=== PATIENT | female | born 1960 | race Caucasian/White ===

== ENCOUNTER → 2016-12-08 | Outpatient (CLI) | payer BC ==
[2014-07-17 10:06] VITALS: BP 123/64
[2016-12-08 09:35] LABS: BASOPHILS # (AUTO) 0.2 X10^3/uL (0.0-0.1); BASOPHILS % (AUTO) 1.3 % (0.2-1.0); EOSINOPHILS # (AUTO) 0.2 x10^3/uL (0.0-0.2); EOSINOPHILS % (AUTO) 1.7 % (0.9-2.9); HEMATOCRIT 40.2 % (36.0-47.0); HEMOGLOBIN 13.3 g/dL (12.0-16.0); LYMPHOCYTES # (AUTO) 2.6 X10^3/uL (1.3-2.9); LYMPHOCYTES % (AUTO) 22.5 % (21.0-51.0); MEAN CORPUSCULAR HEMOGLOBIN 27.8 pg (27.0-34.0); MEAN CORPUSCULAR HGB CONC 33.2 g/dL (33.0-35.0); MEAN CORPUSCULAR VOLUME 83.9 fL (80.0-100.0); MEAN PLATELET VOLUME 6.9 fL (7.4-11.0); MONOCYTES # (AUTO) 0.6 x10^3/uL (0.3-0.8); MONOCYTES % (AUTO) 5.5 % (0.0-13.0); PLATELET COUNT 399 X10^3/uL (150.0-450.0); RED CELL DISTRIBUTION WIDTH 14.8 % (11.6-16.5); WHITE BLOOD COUNT 11.5 X10^3/uL (3.6-10.0)
[2016-12-08 10:07] LABS: ALANINE AMINOTRANSFERASE 28 Units/L (12-78); ALBUMIN 3.7 g/dL (3.4-5.0); ALKALINE PHOSPHATASE 105 Units/L (46-116); ASPARTATE AMINO TRANSFERASE 28 Units/L (15-37); BLOOD UREA NITROGEN 11 mg/dL (7-18); CALCIUM 8.8 mg/dL (8.5-10.1); CARBON DIOXIDE 33.1 mmol/L (21-32); CHLORIDE 101 mmol/L (98-107); CREATININE 0.92 mg/dL (0.55-1.02); GLUCOSE 97 mg/dL (65-99); SODIUM 140 mmol/L (136-145); TOTAL PROTEIN 8.2 g/dL (6.4-8.2); eGFR BLACK RACES > 60 (>60); eGFR NON BLACK RACES > 60 (>60)
== END ==
LOC: RAD 09:07
PROVIDERS: ATTEND Plastic Surgery
DX: Z12.31 Encounter for screening mammogram for malignant neoplasm of breast (principal); N62 Hypertrophy of breast
CPT/HCPCS: 36415; 77067; 80053; 85025; 86701

== ENCOUNTER 2019-10-31 17:11 | Observation (INO) ==
[2019-10-31 21:04] LABS: BASOPHILS # (AUTO) 0.1 X10^3/uL (0.0-0.1); BASOPHILS % (AUTO) 0.9 % (0.2-1.0); EOSINOPHILS # (AUTO) 0.2 x10^3/uL (0.0-0.2); EOSINOPHILS % (AUTO) 2.3 % (0.9-2.9); HEMATOCRIT 26.7 % (36.0-47.0); HEMOGLOBIN 8.3 g/dL (12.0-16.0); LYMPHOCYTES # (AUTO) 2.5 X10^3/uL (1.3-2.9); LYMPHOCYTES % (AUTO) 24.8 % (21.0-51.0); MEAN CORPUSCULAR HEMOGLOBIN 20.4 pg (27.0-34.0); MEAN CORPUSCULAR VOLUME 65.9 fL (80.0-100.0); MEAN PLATELET VOLUME 6.2 fL (7.4-11.0); MONOCYTES # (AUTO) 0.7 x10^3/uL (0.3-0.8); MONOCYTES % (AUTO) 7.2 % (0.0-13.0); NEUTROPHILS # (AUTO) 6.7 x10^3/uL (2.2-4.8); NEUTROPHILS % (AUTO) 64.8 % (42.0-75.0); PLATELET COUNT 441 X10^3/uL (150.0-450.0); RED BLOOD COUNT 4.05 X10^6/uL (3.5-5.4); WHITE BLOOD COUNT 10.3 X10^3/uL (3.6-10.0)
[2019-10-31 21:12] LABS: PLATELET MORPHOLOGY COMMENT NORMAL (NORMAL)
[2019-10-31 21:14] LABS: ANISOCYTOSIS 1+; HYPOCHROMASIA 2+; MICROCYTOSIS 1+
[2019-10-31 21:24] LABS: ALANINE AMINOTRANSFERASE 24 Units/L (12-78); ALBUMIN 3.6 g/dL (3.4-5.0); ALKALINE PHOSPHATASE 102 Units/L (46-116); ASPARTATE AMINO TRANSFERASE 19 Units/L (15-37); BLOOD UREA NITROGEN 14 mg/dL (7-18); CALCIUM 9.1 mg/dL (8.5-10.1); CARBON DIOXIDE 30.4 mmol/L (21-32); CHLORIDE 104 mmol/L (98-107); CKMB % 2.1 % (<4); CREATINE KINASE 161 Units/L (26-192); CREATINE KINASE MB 3.4 ng/mL (0-4.0); CREATININE 1.04 mg/dL (0.55-1.02); SODIUM 141 mmol/L (136-145); TOTAL PROTEIN 7.7 g/dL (6.4-8.2); TROPONIN I < 0.02 ng/mL (0-1.5); eGFR NON BLACK RACES 57 (>60)
[2019-10-31 21:51] LABS: IRON 214 ug/dL (50-175)
[2019-10-31 22:09] VITALS: BMI 34.3
[2019-10-31] MEDS: NS 1000 ML 1,000 ML IV SCH (22:51)
[2019-11-01 01:34] LABS: BILIRUBIN,URINE NEGATIVE (NEGATIVE); BLOOD/HEMOGLOBIN,URINE NEGATIVE (NEGATIVE); GLUCOSE, URINE NEGATIVE (NEGATIVE); KETONES,URINE NEGATIVE (NEGATIVE); LEUKOCYTE ESTERASE ,URINE NEGATIVE (NEGATIVE); NITRITES,URINE NEGATIVE (NEGATIVE); PROTEIN,URINE NEGATIVE (NEGATIVE); UROBILINOGEN,URINE NORMAL (NORMAL)
[2019-11-01 01:43] LABS: COLOR,URINE YELLOW (YELLOW)
[2019-11-01 01:44] LABS: APPEARANCE,URINE CLEAR (CLEAR)
[2019-11-01 02:51] LABS: BASOPHILS # (AUTO) 0.1 X10^3/uL (0.0-0.1); BASOPHILS % (AUTO) 0.9 % (0.2-1.0); EOSINOPHILS # (AUTO) 0.3 x10^3/uL (0.0-0.2); EOSINOPHILS % (AUTO) 3.3 % (0.9-2.9); HEMATOCRIT 25.6 % (36.0-47.0); HEMOGLOBIN 7.9 g/dL (12.0-16.0); LYMPHOCYTES # (AUTO) 2.6 X10^3/uL (1.3-2.9); LYMPHOCYTES % (AUTO) 31.4 % (21.0-51.0); MEAN CORPUSCULAR HEMOGLOBIN 20.4 pg (27.0-34.0); MEAN CORPUSCULAR HGB CONC 30.7 g/dL (33.0-35.0); MEAN CORPUSCULAR VOLUME 66.2 fL (80.0-100.0); MEAN PLATELET VOLUME 6.3 fL (7.4-11.0); MONOCYTES # (AUTO) 0.5 x10^3/uL (0.3-0.8); MONOCYTES % (AUTO) 5.9 % (0.0-13.0); NEUTROPHILS # (AUTO) 4.8 x10^3/uL (2.2-4.8); NEUTROPHILS % (AUTO) 58.5 % (42.0-75.0); PLATELET COUNT 417 X10^3/uL (150.0-450.0); RED BLOOD COUNT 3.87 X10^6/uL (3.5-5.4); RED CELL DISTRIBUTION WIDTH 19.8 % (11.6-16.5); WHITE BLOOD COUNT 8.2 X10^3/uL (3.6-10.0)
[2019-11-01 03:05] LABS: ALANINE AMINOTRANSFERASE 21 Units/L (12-78); ALBUMIN 3.1 g/dL (3.4-5.0); ALKALINE PHOSPHATASE 85 Units/L (46-116); ASPARTATE AMINO TRANSFERASE 19 Units/L (15-37); BLOOD UREA NITROGEN 12 mg/dL (7-18); CALCIUM 8.6 mg/dL (8.5-10.1); CHLORIDE 107 mmol/L (98-107); COR CA(FOR HYPOALB) 9.3 mg/dL (8.5-10.1); CREATININE 0.93 mg/dL (0.55-1.02); SODIUM 143 mmol/L (136-145); TOTAL PROTEIN 6.9 g/dL (6.4-8.2); eGFR NON BLACK RACES > 60 (>60)
[2019-11-01 03:14] LABS: CREATINE KINASE 138 Units/L (26-192); CREATINE KINASE MB 2.7 ng/mL (0-4.0); TROPONIN I < 0.02 ng/mL (0-1.5)
[2019-11-01 04:57] LABS: HYPOCHROMASIA 2+; MICROCYTOSIS 1+; PLATELET MORPHOLOGY COMMENT NORMAL (NORMAL)
--- NOTE | 2019-11-01 05:28 | RAD ---
Chest AP portableIndication: Weakness and anemiaFINDINGSThere is no pneumothorax, effusion or consolidation. Heart size is normal.IMPRESSIONNo acute chest processElectronically signed by: CELIO LAGUERRE (Nov 01, 2019 05:26:50)
[2019-11-01] MEDS ORDERED: MICRO K EXTEN CAP 10 MEQ PO PRN (06:15)
[2019-11-01] MEDS ORDERED: MAGNESIUM SULFATE 1 GRAM/100 mL PREMIX 1 GM/100 ML BAG IV PRN (06:15)
[2019-11-01] MEDS ORDERED: K-DUR TAB 20 MEQ PO PRN (06:15)
[2019-11-01] MEDS ORDERED: K-RIDER 10 MEQ/NS 100 ML 10 MEQ/100 ML BAG IV PRN (06:15)
[2019-11-01] MEDS ORDERED: POTASSIUM CHL 40 MEQ/NS 0.45% 500 ML IV PRN (06:15)
[2019-11-01] MEDS ORDERED: KLOR-CON PO PRN (06:15)
[2019-11-01] MEDS ORDERED: POTASSIUM CHLORIDE LIQ 20 MEQ UDC PO PRN (06:15)
[2019-11-01] MEDS ORDERED: POTASSIUM CHL 60 MEQ/NS 0.45% 500 ML IV PRN (06:15)
[2019-11-01 10:49] LABS: CKMB % 2.5 % (<4); CREATINE KINASE 127 Units/L (26-192); CREATINE KINASE MB 3.2 ng/mL (0-4.0); TROPONIN I < 0.02 ng/mL (0-1.5)
[2019-11-01 10:53] LABS: TSH (3RD GENERATION) 2.327 uIU/mL (0.358-3.74)
[2019-11-01] MEDS: NS 1000 ML 1,000 ML IV SCH ×2 (11:01→23:51)
[2019-11-01] MEDS: PEPCID 20 MG IV PREMIX* 20 MG/50 ML BAG IV SCH ×2 (11:24→20:36)
[2019-11-01] MEDS: PROTONIX INJ 40 MG VIAL IVP SCH ×2 (11:24→20:36)
[2019-11-01] MEDS ORDERED: DIPRIVAN VIAL 20 ML ONE (14:01)
--- NOTE | 2019-11-01 14:29 | OR.IMMED ---
Immediate Post-Op Note - Immediate Post-Op Note Pre-Op Diagnosis: abdominal pain , PUD, gastritis. Post-Op Diagnosis: moderate gastritis . Hiatal hernia . no bleeding or neoplasm . Procedure: EGD with Bx Surgeon/Telecommunications Manager: Nathaniel Specimens Removed: Bxfrom the [facility] . Antrum , fundus Drains: NONE Condition: Stable (for abdominal /pelvic CTand future colonoscopy .)
[2019-11-01 14:38] LABS: AMYLASE 35 Units/L (25-115); LIPASE 107 Units/L (73-393)
[2019-11-01] MEDS ORDERED: EFFEXOR XR 150 MG CAP PO ONE (17:20)
[2019-11-01] MEDS: EFFEXOR XR 150 MG CAP PO SCH (17:21)
--- NOTE | 2019-11-01 17:23 | DR.UPDATE ---
H&P Update History and Physical Update: History and Physical reviewed and patient examined. Changes noted: Yes with the following: WAS SEEN IN THE OFFICE WITH COMPLAINTS OF WEAKNESS AND MILD ABDOMINAL PAIN. OUTPATIENT LABS WERE OBTAINED AND REVEALED A HEMOGLOBIN OF 8.6. SHE WAS ADMITTED FOR FURTHER EVALUATION AND TREATMENT OF ANEMIA, WEAKNESS, AND ABDOMINAL PAIN. ON ADMISSION, VITALS WERE 97.8-81-22-99%-145/63. LABS WERE OBTAINED. ABNORMAL LAB VALUES INCLUDE THE FOLLOWING: WBC 10.3, HGB 8.3, HCT 26.7, CREATININE 1.04, IRON 214, FERRITIN 6, TOTAL BILI 0.10. CHEST XRAY OBTAINED AND REVEALED: NO ACUTE CHEST PROCESS. EKG REVEALED: SINUS RHYTHM WITH HR 73. SHE WAS STARTED ON NS AT 80 ML/HR, THE POTASSIUM AND MAGNESIUM PROTOCOLS, PEPCID 20MG IV BID, PROTONIX 40MG IV BID, AND HOME MEDICATIONS WERE RESUMED. WE WILL OBTAIN AN ABDOMEN/PELVIS CT WITH CONTRAST TODAY. WE WILL ALSO CONSULT WITH . OTHERWISE, WE WILL FOLLOW UP WITH AM LABS AND CONTINUE TO MONITOR. Prescription drug monitoring program results: PDMP reviewed and no concerns identified H&P Reviewed: Yes Patient was examined?: Yes
--- NOTE | 2019-11-01 17:49 | CT ---
HISTORYEPIGASTRIC/LUQ ABD PAIN, ANEMIASTUDYABDOMEN/PELVIS WITH CONCOMPARISONNone availableTECHNIQUEMultiple axial images of the abdomen and pelvis were obtained from the lung bases to the pubic symphysis after the administration of IV contrast. Dose reduction techniques including Automated Exposure Control (AEC) and adjustment of mA and kV were utilized.FINDINGS[The lung bases are clear. Indeterminate small round hypoattenuating lesion within the posterior hepatic segment measuring approximately 10 mm on axial image 24. Gallbladder, bile ducts and spleen are unremarkable. Mild atrophic change of the pancreatic head and body, no pancreatic mass or definite inflammatory change or fluid. Adrenal glands are normal. Kidneys are normal. Small sliding hiatal hernia otherwise upper GI tract is normal. Mild increased fecal material throughout the colon. Suspected prior appendectomy as there is postsurgical change adjacent to the cecum urinary bladder is non distended however demonstrates mild wall circumferential bladder wall thickening. No pelvic or adnexal mass. Small fat containing femoral hernia. Abdominal aorta is normal in caliber. No adenopathy. No acute osseous abnormality. Levoscoliosis of the lumbar spine with previous posterior fixation and decompression spanning L3-5.IMPRESSIONMild circumferential bladder wall thickening likely in the setting of underdistention however correlation with urinalysis is recommended to exclude an acute cystitis.Indeterminate 10 mm hypoattenuating lesion within the posterior hepatic segment.Mild constipation.Additional incidental, nonacute findings as described above.Electronically signed by: ADI RICHARDS (Nov 01, 2019 17:47:51)
[2019-11-02] MEDS: NS 1000 ML 1,000 ML IV SCH (02:30)
[2019-11-02 06:15] LABS: BASOPHILS # (AUTO) 0.1 X10^3/uL (0.0-0.1); EOSINOPHILS # (AUTO) 0.3 x10^3/uL (0.0-0.2); EOSINOPHILS % (AUTO) 3.4 % (0.9-2.9); HEMATOCRIT 25.7 % (36.0-47.0); HEMOGLOBIN 7.9 g/dL (12.0-16.0); LYMPHOCYTES # (AUTO) 2.4 X10^3/uL (1.3-2.9); LYMPHOCYTES % (AUTO) 29.5 % (21.0-51.0); MEAN CORPUSCULAR HEMOGLOBIN 20.8 pg (27.0-34.0); MEAN CORPUSCULAR HGB CONC 30.8 g/dL (33.0-35.0); MEAN CORPUSCULAR VOLUME 67.4 fL (80.0-100.0); MEAN PLATELET VOLUME 6.8 fL (7.4-11.0); MONOCYTES # (AUTO) 0.4 x10^3/uL (0.3-0.8); MONOCYTES % (AUTO) 5.1 % (0.0-13.0); NEUTROPHILS # (AUTO) 4.9 x10^3/uL (2.2-4.8); PLATELET COUNT 399 X10^3/uL (150.0-450.0); RED BLOOD COUNT 3.81 X10^6/uL (3.5-5.4); RED CELL DISTRIBUTION WIDTH 20.2 % (11.6-16.5)
[2019-11-02 06:36] LABS: ALANINE AMINOTRANSFERASE 19 Units/L (12-78); ALBUMIN 2.8 g/dL (3.4-5.0); ALKALINE PHOSPHATASE 81 Units/L (46-116); ASPARTATE AMINO TRANSFERASE 16 Units/L (15-37); BLOOD UREA NITROGEN 9 mg/dL (7-18); CALCIUM 8.5 mg/dL (8.5-10.1); CARBON DIOXIDE 26.6 mmol/L (21-32); CHLORIDE 110 mmol/L (98-107); COR CA(FOR HYPOALB) 9.5 mg/dL (8.5-10.1); CREATININE 0.76 mg/dL (0.55-1.02); SODIUM 143 mmol/L (136-145); TOTAL PROTEIN 6.5 g/dL (6.4-8.2); eGFR NON BLACK RACES > 60 (>60)
[2019-11-02 06:43] LABS: ANISOCYTOSIS 1+; HYPOCHROMASIA 2+; MICROCYTOSIS 1+; PLATELET MORPHOLOGY COMMENT NORMAL (NORMAL)
[2019-11-02] MEDS: EFFEXOR XR 150 MG CAP PO SCH (09:27)
[2019-11-02] MEDS: PROTONIX INJ 40 MG VIAL IVP SCH (09:27)
[2019-11-02] MEDS: PEPCID 20 MG IV PREMIX* 20 MG/50 ML BAG IV SCH (09:28)
--- NOTE | 2019-11-02 10:23 | W.DIS.FURT ---
Summary of Discharge Discharge Summary of Date Date of Exam: 11/02/19 Admission Date Date of Admission: 11/01/19 Admission Diagnosis Patient Problems (Updated 11/02/19 @ 12:47 by Donaldo Holley) LAYLA (iron deficiency anemia) (Acute) D50.9 Hiatal hernia (Acute) K44.9 Gastritis (Acute) K29.70 Generalized weakness (Acute) R53.1 Symptomatic anemia (Acute) D64.9 Hospital Course: Pt is a 59 yo f admitted for symptomatic anemia, abdominal pain, and weakness. Her initial hemoglobin was 8.3. Surgery was consulted, EGD was performed that showed moderate gasritis, hiatal hernia and no bleeding. Repeag hgb has been stable at 7.9. Discussed with surgery who will follow up outpatient for a colonoscopy. Patient advised to take iron supplements and protonix. Follow up with surgery and PCP in one week. CTAP showed Mild circumferential bladder wall thickening likely in the setting of under distention however correlation with urinalysis is recommended to exclude an acute cystitis. Indeterminate 10 mm hypoattenuating lesion within the posterior hepatic segment. Vital Signs: Vital Signs (72 hours) 10/31/19 20:25 11/01/19 00:00 11/01/19 04:00 Temperature 97.8 F 98.1 F 97.8 F Pulse Rate [Left Brachial] 81 86 70 Respiratory Rate 22 18 16 Blood Pressure [Left Arm] 145/63 121/58 106/50 O2 Sat by Pulse Oximetry 99 100 100 11/01/19 08:00 11/01/19 12:00 11/01/19 14:30 Temperature 97.8 F 98.1 F 98.8 F Pulse Rate [Left Brachial] 69 75 76 Respiratory Rate 18 18 18 Blood Pressure [Left Arm] 116/50 126/57 118/57 O2 Sat by Pulse Oximetry 100 100 98 11/01/19 14:45 11/01/19 15:00 11/01/19 15:15 Temperature 98.8 F 98.6 F 98.6 F Pulse Rate [Left Brachial] 72 77 77 Respiratory Rate 18 18 18 Blood Pressure [Left Arm] 115/60 131/62 109/55 O2 Sat by Pulse Oximetry 98 98 98 11/01/19 15:30 11/01/19 16:00 11/01/19 20:00 Temperature 98.6 F 98.8 F 97.9 F Pulse Rate [Left Brachial] 76 77 78 Respiratory Rate 18 20 16 Blood Pressure [Left Arm] 114/62 109/55 132/62 O2 Sat by Pulse Oximetry 98 97 99 11/02/19 00:00 11/02/19 04:00 Temperature 99.7 F H 97.9 F Pulse Rate [Left Brachial] 66 62 Respiratory Rate 18 20 Blood Pressure [Left Arm] 123/60 104/62 O2 Sat by Pulse Oximetry 99 98 Labs: Laboratory Last Values WBC 8.0 X10^3/uL (3.6-10.0) 11/02/19 05:13 RBC 3.81 X10^6/uL (3.5-5.4) 11/02/19 05:13 Hgb 7.9 g/dL (12.0-16.0) L 11/02/19 05:13 Hct 25.7 % (36.0-47.0) L 11/02/19 05:13 MCV 67.4 fL (80.0-100.0) L 11/02/19 05:13 MCH 20.8 pg (27.0-34.0) L 11/02/19 05:13 MCHC 30.8 g/dL (33.0-35.0) L 11/02/19 05:13 RDW 20.2 % (11.6-16.5) H 11/02/19 05:13 Plt Count 399 X10^3/uL (150.0-450.0) 11/02/19 05:13 Plt Count Comment Adequate (ADEQUATE) 11/02/19 05:13 MPV 6.8 fL (7.4-11.0) L 11/02/19 05:13 Neut % (Auto) 61.0 % (42.0-75.0) 11/02/19 05:13 Lymph % (Auto) 29.5 % (21.0-51.0) 11/02/19 05:13 Bradford % (Auto) 5.1 % (0.0-13.0) 11/02/19 05:13 Eos % (Auto) 3.4 % (0.9-2.9) H 11/02/19 05:13 Baso % (Auto) 1.0 % (0.2-1.0) 11/02/19 05:13 Neut # (Auto) 4.9 x10^3/uL (2.2-4.8) H 11/02/19 05:13 Lymph # (Auto) 2.4 X10^3/uL (1.3-2.9) 11/02/19 05:13 Bradford # (Auto) 0.4 x10^3/uL (0.3-0.8) 11/02/19 05:13 Eos # (Auto) 0.3 x10^3/uL (0.0-0.2) H 11/02/19 05:13 Baso # (Auto) 0.1 X10^3/uL (0.0-0.1) 11/02/19 05:13 Absolute Nucleated RBC 0.0 /100WBC 11/02/19 05:13 Plt Morphology Comment Normal (NORMAL) 11/02/19 05:13 RBC Morphology Abnormal (NORMAL) A 11/02/19 05:13 Hypochromasia 2+ A 11/02/19 05:13 Anisocytosis 1+ A 11/02/19 05:13 Microcytosis 1+ A 11/02/19 05:13 Sodium 143 mmol/L (136-145) 11/02/19 05:13 Corrected Sodium TNP 11/02/19 05:13 Potassium 3.6 mmol/L (3.5-5.1) 11/02/19 05:13 Chloride 110 mmol/L (98-107) H 11/02/19 05:13 Carbon Dioxide 26.6 mmol/L (21-32) 11/02/19 05:13 BUN 9 mg/dL (7-18) 11/02/19 05:13 Creatinine 0.76 mg/dL (0.55-1.02) 11/02/19 05:13 Est GFR (MDRD) Af Amer > 60 (>60) 11/02/19 05:13 Est GFR (MDRD) Non-Af > 60 (>60) 11/02/19 05:13 Glucose 100 mg/dL (65-99) H 11/02/19 05:13 Calcium 8.5 mg/dL (8.5-10.1) 11/02/19 05:13 Corrected Calcium 9.5 mg/dL (8.5-10.1) 11/02/19 05:13 Magnesium 2.1 mg/dL (1.7-2.9) 11/01/19 02:35 Iron 214 ug/dL (50-175) H 10/31/19 20:56 TIBC 355 ug/dL (250-450) 11/01/19 10:14 Transferrin 308 mg/dL (202-364) 10/31/19 20:56 Ferritin 6 ng/mL (8-252) L 10/31/19 20:56 Total Bilirubin 0.10 mg/dL (0.2-1.0) L 11/02/19 05:13 AST 16 Units/L (15-37) 11/02/19 05:13 ALT 19 Units/L (12-78) 11/02/19 05:13 Alkaline Phosphatase 81 Units/L (46-116) 11/02/19 05:13 Creatine Kinase 127 Units/L (26-192) 11/01/19 10:14 CK-MB (CK-2) 3.2 ng/mL (0-4.0) 11/01/19 10:14 CK/CKMB % Calc 2.5 % (<4) 11/01/19 10:14 Troponin I < 0.02 ng/mL (0-1.5) 11/01/19 10:14 Total Protein 6.5 g/dL (6.4-8.2) 11/02/19 05:13 Albumin 2.8 g/dL (3.4-5.0) L 11/02/19 05:13 Globulin 3.7 g/dL (2.5-4.5) 11/02/19 05:13 Albumin/Globulin Ratio 0.8 Ratio (1.1-2.1) L 11/02/19 05:13 Amylase 35 Units/L (25-115) 11/01/19 10:14 Lipase 107 Units/L (73-393) 11/01/19 10:14 Vitamin B12 507 pg/mL (193-986) 11/01/19 10:14 Folate 19.2 ng/mL (>8.6) 11/01/19 10:14 Thyroxine (T4) 8.0 ug/dL (4.7-13.3) 11/01/19 10:14 TSH 3rd Generation 2.327 uIU/mL (0.358-3.74) 11/01/19 10:14 Specimen Type Clean catch urine 11/01/19 01:08 Urine Color Yellow (YELLOW) 11/01/19 01:08 Urine Appearance Clear (CLEAR) 11/01/19 01:08 Urine pH 7.0 (5.0 - 8.0) 11/01/19 01:08 Ur Specific Wallace 1.010 (1.000-1.030) 11/01/19 01:08 Urine Protein Negative (NEGATIVE) 11/01/19 01:08 Urine Glucose (UA) Negative (NEGATIVE) 11/01/19 01:08 Urine Ketones Negative (NEGATIVE) 11/01/19 01:08 Urine Occult Blood Negative (NEGATIVE) 11/01/19 01:08 Urine Nitrite Negative (NEGATIVE) 11/01/19 01:08 Urine Bilirubin Negative (NEGATIVE) 11/01/19 01:08 Urine Urobilinogen Normal (NORMAL) 11/01/19 01:08 Ur Leukocyte Esterase Negative (NEGATIVE) 11/01/19 01:08 Tissue Pathology To follow 11/01/19 14:07 Reason For Visit: weakness,anemia Discharge Date Discharge Date: 11/02/19 Discharge Diagnosis All Active Problems (Updated 11/02/19 @ 12:47 by Donaldo Holley) LAYLA (iron deficiency anemia) (Acute) Hiatal hernia (Acute) Gastritis (Acute) Generalized weakness (Acute) Symptomatic anemia (Acute) Medication reaction (Acute) Plan of Treatment: Continue with present treatment and follow up plan. Pt is to keep follow up appointment as instructed and take medications as ordered. Discharge Medications Discharge Medications: prednisone Allergy (Severe, Verified 10/31/19 20:37) acetaminophen [From Darvocet-N] Allergy (Verified 10/31/19 20:37) propoxyphene [From Darvocet-N] Allergy (Verified 10/31/19 20:37) CONTINUE taking the following medications Ferrocite Plus 1 tab PO DAILY 10/31/19 [History] Linzess 145 mcg PO DAILY 10/31/19 [History] dextroamphetamine-amphetamine 30 mg PO DAILY 10/31/19 [History] gabapentin 100 mg PO HS 10/31/19 [History] montelukast 10 mg PO DAILY 10/31/19 [History] rizatriptan 5 mg TRANSLINGUAL PRN PRN 10/31/19 [History] rosuvastatin 5 mg PO HS 10/31/19 [History] topiramate 125 mg PO BID 10/31/19 [History] triamterene-hydrochlorothiazid 1 tab PO DAILY 10/31/19 [History] venlafaxine 150 mg PO DAILY 10/31/19 [History] New Prescriptions pantoprazole [Protonix] 40 mg PO DAILY 30 Days #30 tab 11/02/19 [Rx] Follow up and Referral Follow Up: 1 Week (PCP) 1 Week (Surgery ) Discharge Disposition Discharge Disposition: Home Discharge Condition: Stable
[2019-11-02 10:48] VITALS: BP 99/56
== END 2019-11-02 11:55 | disposition home or self-care (01) ==
LOC: MED/SURG
PROVIDERS: ADMIT Internal Medicine; ATTEND Internal Medicine
DX: R53.1 Weakness; Z79.899 Other long term (current) drug therapy; D50.8 Other iron deficiency anemias; K59.09 Other constipation; K21.9 Gastro-esophageal reflux disease without esophagitis; R10.84 Generalized abdominal pain; K44.9 Diaphragmatic hernia without obstruction or gangrene; K29.60 Other gastritis without bleeding
CPT/HCPCS: 36415; 71010; 71045; 74177; 80053; 81003; 82150; 82378; 82550; 82553; 82607; 82728; 82746; 83540; 83550; 83690; 83735; 84132; 84436; 84443; 84466; 84480; 84484; 85025; 85060; 93005; 94760; 96360; 96361; A4216; A4222; C9113; G0378; J2704; J7030; S0028